=== PATIENT | male | born 1990 | race Two or more races ===

== ENCOUNTER 2024-12-10 04:52 | Emergency (ER) | payer SELFPAY ==
[2024-12-10 04:57] VITALS: BMI 24.7
[2024-12-10 05:04] VITALS: BP 147/97; PULSE 91; RESP 18; TEMP 36.6; O2SAT 96
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
[2024-12-10] MEDS: HYDROcodone/APAP 5/325 TABLET 1 TAB PO (05:47)
== END 2024-12-10 05:53 | disposition home or self-care (01) ==
PROVIDERS: Emergency Provider Emergency Medicine
DX: Z02.89 Encounter for other administrative examinations (principal); S20.211A Contusion of right front wall of thorax, initial encounter; V09.9XXA Pedestrian injured in unspecified transport accident, initial encounter; Y93.55 Activity, bike riding
CPT/HCPCS: 99283; A9270